=== PATIENT | female | born 1945 | race African-American/Black ===

== ENCOUNTER 2021-06-08 05:06 | Emergency (ER) | payer MEDICARE ==
[~2021-06-08] VITALS: Ht 167.6 cm; Wt 77.0 kg
[2021-06-08 05:44] VITALS: BP 116/60
== END 2021-06-08 08:40 | disposition left against medical advice (07) ==
LOC: ER 05:06
DX: Z53.21 Procedure and treatment not carried out due to patient leaving prior to being seen by health care provider (principal)
CPT/HCPCS: 99281